=== PATIENT | female | born 1980 | race Caucasian/White ===

== ENCOUNTER 2017-08-20 16:33 | Emergency (ER) | payer BC ==
[~2017-08-20] VITALS: Ht 170.1 cm; Wt 79.4 kg
[~2017-08-20 16:33] MED LIST: BENTYL10 MG PO; HYDROCODONE BIT1 T11 PO; MOTRIN800 MG PO; NAPROSYN500 MG PO; PREDNISONE10 MG PO; ROBAXIN500 MG PO; ZOFRAN ODT4 MG SL
[2017-08-20] MEDS ORDERED: PROAIR HFA8.5 GM INH (17:34)
[2017-08-20] MEDS ORDERED: ZITHROMAX250 MG PO (17:34)
[2017-08-20] MEDS ORDERED: DELTASONE20 M1 PO (17:34)
== END 2017-08-20 17:41 | disposition home or self-care (01) ==
LOC: ED 16:33
DX: J40 Bronchitis, not specified as acute or chronic (principal)

== ENCOUNTER → 2019-04-13 | Outpatient (CLI) | payer BC ==
[~2019-04-13] MED LIST changes: +DELTASONE20 M1 PO; +PROAIR HFA8.5 GM INH; +ZITHROMAX250 MG PO
== END | disposition home or self-care (01) ==
LOC: US 10:30
DX: N92.1 Excessive and frequent menstruation with irregular cycle (principal)

== ENCOUNTER → 2019-05-20 | Outpatient (CLI) | payer BC | END | disposition home or self-care (01) | LOC: US 06:22 | DX: R93.89 Abnormal findings on diagnostic imaging of other specified body structures (principal) ==

== ENCOUNTER 2020-12-27 15:02 | Emergency (ER) | payer BC ==
[~2020-12-27] VITALS: Ht 170.1 cm; Wt 94.3 kg
[2020-12-27] MEDS ORDERED: LEVOTHYROXINE25 MCG PO (15:16)
[2020-12-27] MEDS ORDERED: Motrin,Rufen800 MG PO (17:40)
[2020-12-27] MEDS ORDERED: CYCLOBENZAPRINE5 M3 PO (17:40)
== END 2020-12-27 17:50 | disposition home or self-care (01) ==
LOC: ED 15:02
DX: S16.1XXA Strain of muscle, fascia and tendon at neck level, initial encounter (principal); E03.9 Hypothyroidism, unspecified; Z79.899 Other long term (current) drug therapy; W19.XXXA Unspecified fall, initial encounter; Y93.89 Activity, other specified; Y92.89 Other specified places as the place of occurrence of the external cause; Y99.8 Other external cause status

== ENCOUNTER 2022-01-24 15:26 | Emergency (ER) | payer BC ==
[~2022-01-24] VITALS: Wt 90.7 kg
[~2022-01-24 15:26] MED LIST changes: +CYCLOBENZAPRINE5 M3 PO; +LEVOTHYROXINE25 MCG PO; +Motrin,Rufen800 MG PO
[2022-01-24 17:37] LABS: BASO % 0.4 % (0.0-1.0); EOS # 0.1 10*3/uL (0.0-0.4); EOS % 2.1 % (1.0-4.0); LYMPH # 1.2 10*3/uL (1.3-4.4); LYMPH % 16.9 % (27.0-41.0); MEAN CELL VOLUME 88.9 fl (81.0-99.0); MEAN CORPUSCULAR HGB 30.2 pg (27.0-31.0); MEAN PLATELET VOLUME 9.5 fl (9.6-12.3); MONO # 0.5 10*3/uL (0.1-1.0); MONO % 6.7 % (3.0-9.0); NEUT % 73.3 % (47.0-73.0); PLATELET COUNT AUTOMATED 236 10*3/uL (130-400); WHITE BLOOD COUNT 6.8 10*3/uL (4.8-10.8)
[2022-01-24 17:50] LABS: ALKALINE PHOSPHATASE 61 U/L (45-117); BUN 8 mg/dl (7-24); CHLORIDE 110 mmol/L (98-107); CREATININE 0.82 mg/dL (0.55-1.02); LIPASE 155 U/L (73-393); POTASSIUM 3.4 mmol/L (3.5-5.1); SGOT/AST 11 IU/L (3-35); SGPT/ALT 22 U/L (12-78); SODIUM 140 mmol/L (136-145); TOTAL PROTEIN 6.7 gm/dL (6.4-8.2)
== END 2022-01-24 20:14 | disposition home or self-care (01) ==
LOC: ED 15:26
PROVIDERS: Physician Assistant
DX: K52.9 Noninfective gastroenteritis and colitis, unspecified (principal); Z79.899 Other long term (current) drug therapy

== ENCOUNTER 2022-05-05 11:55 | Emergency (ER) | payer BC ==
[~2022-05-05] VITALS: Ht 170.1 cm; Wt 90.7 kg
[2022-05-05] MEDS ORDERED: PREDNISONE20 M1 PO (13:11)
[2022-05-05] MEDS ORDERED: TOBRAMYCIN 5 ML5 M1 OPH (13:11)
== END 2022-05-05 13:40 | disposition home or self-care (01) ==
LOC: ED 11:55
DX: H11.421 Conjunctival edema, right eye (principal); J30.1 Allergic rhinitis due to pollen; Z79.899 Other long term (current) drug therapy

== ENCOUNTER 2022-06-20 17:15 | Emergency (ER) | payer OTHER, BC ==
[~2022-06-20] VITALS: Wt 97.5 kg
[~2022-06-20 17:15] MED LIST changes: +PREDNISONE20 M1 PO; +TOBRAMYCIN 5 ML5 M1 OPH
== END 2022-06-20 21:11 | disposition home or self-care (01) ==
LOC: ED 17:15
DX: S50.12XA Contusion of left forearm, initial encounter (principal); S20.219A Contusion of unspecified front wall of thorax, initial encounter; S80.12XA Contusion of left lower leg, initial encounter; S80.11XA Contusion of right lower leg, initial encounter; Z79.899 Other long term (current) drug therapy; V43.52XA Car driver injured in collision with other type car in traffic accident, initial encounter; Y93.89 Activity, other specified; Y92.89 Other specified places as the place of occurrence of the external cause; Y99.8 Other external cause status